=== PATIENT | female | born 1990 ===

== ENCOUNTER 2021-10-23 08:00 | Outpatient (CLI) | payer OTHER ==
[~2021-10-23 08:00] MED LIST: AURALGAN OTIC S14 ML OT; ZITHROMAX500 MG PO
== END 2021-10-23 08:30 | disposition home or self-care (01) ==
LOC: PPH VACUNA 08:00
PROVIDERS: ATTEND Emergency Medicine Pediatric Emergency Medicine
DX: Z23 Encounter for immunization (principal)

== ENCOUNTER 2023-12-16 16:40 | Outpatient (CLI) | payer OTHER | END 2023-12-16 17:57 | disposition home or self-care (01) | LOC: NST 16:40 | PROVIDERS: ATTEND Obstetrics & Gynecology | DX: Z34.82 Encounter for supervision of other normal pregnancy, second trimester (principal); Z3A.26 26 weeks gestation of pregnancy ==